=== PATIENT | male | born 1965 | race African-American/Black ===

== ENCOUNTER 2018-04-06 21:31 | Emergency (ER) | payer OTHER ==
[2018-04-06] MEDS ORDERED: predniSONE 10 MG TABLET (22:21)
[2018-04-06] MEDS: KETOROLAC 60 MG/2 ML INJ. IM (22:23)
[2018-04-06] MEDS: predniSONE 20 MG TABLET PO (22:26)
== END 2018-04-06 22:29 | disposition home or self-care (01) ==
LOC: ER 22:29
DX: M10.9 Gout, unspecified (principal); M25.531 Pain in right wrist; I10 Essential (primary) hypertension
CPT/HCPCS: 96372; 99283; J1885; J7512

== ENCOUNTER 2018-07-03 01:13 | Emergency (ER) | payer OTHER ==
[~2018-07-03] VITALS: Ht 170.2 cm; Wt 83.9 kg
[~2018-07-03 01:13] MED LIST: ALLO300T PO; AMLO10TA6 PO; CARV25TA2 PO; IBUP-1007 PO; PRED50TA PO
[2018-07-03 01:18] VITALS: BP 186/107
[2018-07-03] MEDS ORDERED: LIDOCAINE 1% PF 2 ML VIAL. ONE (01:23)
[2018-07-03] MEDS ORDERED: LIDOCAINE 1% PF 2 ML VIAL. INJ ONE ×2 (02:00→03:00)
[2018-07-03] MEDS ORDERED: HYDR-971 PO (03:02)
[2018-07-03] MEDS ORDERED: IBUP-1060 PO (03:02)
[2018-07-03] MEDS ORDERED: CEPH-264 PO (03:02)
--- NOTE | 2018-07-03 03:18 | PHYS DOC ---
Past Medical History Past Medical History: Hypertension Additional Past Medical Histor: GOUT Past Surgical History: No Surgical History Alcohol Use: Occasionally Drug Use: None Adult General Chief Complaint Chief Complaint: FINGER INJURY HPI HPI Patient is a 52 year old male who presents with right finger laceration. Patient states he was repairing some sort of old style fan at home. He states the fan had metal blades. It was running and he somehow got his finger caught in the fan. He sustained laceration to the right middle finger. He complains only of laceration. He does not complain of numbness or tingling or loss of ability to flex or extend the finger. No additional injuries. He is uncertain when his last tetanus shot was. Review of Systems Review of Systems Constitutional: Denies fever or chills Eyes: Denies HENT: Denies Respiratory: Denies Cardiovascular: No additional information not addressed in HPI GI: Denies : Denies Musculoskeletal: laceration as documented above Integument: Denies Neurologic: Denies All other systems were reviewed and found to be within normal limits, except as documented in this note. Current Medications Current Medications Current Medications Medications (Trade) Dose Ordered Sig/Annmarie Start Time Stop Time Status Last Admin Dose Admin Acetaminophen/ Hydrocodone Bitart (Lortab 5/325) 2 tab 1X ONCE 07/03/18 03:30 07/03/18 03:31 Cephalexin HCl (Keflex) 500 mg 1X ONCE 07/03/18 03:30 07/03/18 03:31 Diphtheria/ Tetanus/Acell Pertussis (Boostrix) 0.5 ml ONCE ONCE 07/03/18 03:30 07/03/18 03:31 Ibuprofen (Motrin) 800 mg 1X ONCE 07/03/18 03:30 07/03/18 03:31 Lidocaine HCl (Xylocaine-Mpf 1% 2ml Vial) 4 ml 1X ONCE 07/03/18 03:00 07/03/18 03:10 DC 07/03/18 02:58 4 ML Allergies Allergies Allergies Coded Allergies Type Severity Reaction Last Updated Verified No Known Drug Allergies 12/16/14 No Physical Exam Physical Exam Constitutional: Well developed, well nourished, no acute distress HENT: Normocephalic, atraumatic, bilateral external ears normal, oropharynx moist Eyes: PERRLA Neck: Normal range of motion Cardiovascular:Heart rate regular rhythm, no murmur Lungs & Thorax: Bilateral breath sounds clear to auscultation Skin: Warm, dry, no erythema, no rash Back: No tenderness Extremities: Degloving injury and laceration of the right middle finger. All flexor and extensor mechanisms remain intact. Sensation to light touch is intact distal to the wound. The laceration is nearly circumferential beginning over the PIP and extending past the DIP. Eppler refill is less than 2 seconds in the nailbed Neurologic: Alert and oriented X 3 Psychologic: Affect normal Current Patient Data Vital Signs Vital Signs Date Time Temp Pulse Resp B/P (MAP) Pulse Ox O2 Delivery O2 Flow Rate FiO2 07/03/18 01:18 99.2 102 20 186/107 (133) 98 Room Air 99.2 EKG EKG [] Radiology/Procedures Radiology/Procedures [] Course & Med Decision Making Course & Med Decision Making Pertinent Labs and Imaging studies reviewed. (See chart for details) Shunt was evaluated in the emergency department for an extensive laceration to the right middle finger. Plain film imaging was done. No acute fracture was seen on the x-ray. The laceration was repaired per the procedure note below. Patient was discharged to home with ibuprofen for mild pain, [place] for more severe pain. He was also placed on Keflex simply due to the depth and extent of the laceration and repair. The patient does work in a factory. He was explicitly advised not to drive or work while taking [place] for pain. Procedure note: Laceration repair right middle finger. The finger was anesthetized using a total of 60 L of 1% lidocaine without epinephrine. Digital block was performed in the usual fashion. The skin was cleansed with iodine prior to injection of the medication at the base of the ulnar and radial aspects of the middle finger. This anesthesia was adequate throughout the procedure. The wound was copiously irrigated. There was extensive amount of fat tissue protruding and extensive debridement required. A total of 22 simple interrupted sutures were placed. 3-0 nylon was used. The wound edges were difficult to approximate and at places were not possible to approximate. By the end of the procedure, the wound was hemostatic. The patient continued to have full range of motion and flexion and extension mechanisms remained intact. The wound was dressed and the patient was placed in a splint in flexion. Patient tolerated well. He was advised to return to the ER in 10-14 days to have the sutures removed. Sooner if there are any signs of infection. tetanus IMM was given. Dragon Disclaimer Dragon Disclaimer This electronic medical record was generated, in whole or in part, using a voice recognition dictation system. Departure Departure Impression: Primary Impression: Laceration of finger Disposition: HOME, SELF-CARE Condition: GOOD Patient Instructions: Sutured Wound Care, Laceration Care, Adult, [id number] , Pain Medicine Instructions, [id number] Scripts Cephalexin (KEFLEX) 500 Mg Capsule 500 MG PO QID for 10 Days, #40 CAP Prov: MARY LEAL DO 07/03/18 Hydrocodone/Apap 5-325 (NORCO 5-325 TABLET) 1 Each Tablet 1-2 EACH PO PRN Q6HRS PRN for severe pain, #15 as needed for pain Prov: MARY LEAL DO 07/03/18 Ibuprofen (IBUPROFEN) 800 Mg Tablet 800 MG PO PRN TID PRN for PAIN, #21 TAB take with food or milk to avoid upsetting stomach Prov: MARY LEAL DO 07/03/18 MARY LEAL DO Jul 03, 2018 03:18
[2018-07-03] MEDS ORDERED: DIPHTH,PERTUSS(ACELL),TET TOX 0.5 ML DISP.SYRIN. VAX IM ONE (03:30)
[2018-07-03] MEDS ORDERED: HYDROcodone/APAP 5/325MG 1 TAB TABLET PO ONE (03:30)
[2018-07-03] MEDS ORDERED: IBUPROFEN 400 MG TABLET. PO ONE (03:30)
[2018-07-03] MEDS ORDERED: CEPHALEXIN 250 MG CAPSULE. PO ONE (03:30)
--- NOTE | 2018-07-03 06:26 | RAD ---
EXAM: PA, oblique and lateral views of the right hand DATE: 07/03/2018 1:31 AM INDICATION: laceration to middle finger COMPARISON: No Prior FINDINGS/ IMPRESSION: No evidence of acute fracture or dislocation. Laceration is seen at the radial aspect of the middle phalanx of the middle finger without definite retained radiopaque foreign body or subjacent osseous abnormality. Scattered IP joint degenerative changes. Electronically signed by: Arnulfo Gautam MD (07/03/2018 6:22 AM) [id number]
== END 2018-07-03 03:17 | disposition home or self-care (01) ==
LOC: ER 01:13
DX: S61.212A Laceration without foreign body of right middle finger without damage to nail, initial encounter (principal); I10 Essential (primary) hypertension; M10.9 Gout, unspecified; W23.0XXA Caught, crushed, jammed, or pinched between moving objects, initial encounter; Y93.89 Activity, other specified; Y92.89 Other specified places as the place of occurrence of the external cause; Y99.8 Other external cause status
CPT/HCPCS: 12041; 12045; 73130; 90471; 90715; 99284-25

== ENCOUNTER → 2018-08-29 | Outpatient (CLI) | payer OTHER ==
[~2018-08-29] MED LIST changes: +CEPH-264 PO; +HYDR-3164 PO; +IBUP-1060 PO
--- NOTE | 2018-08-29 10:38 | RAD ---
MR of the right third finger HISTORY: Anterior laceration of the middle finger 2 months ago. Limited range of motion and swelling. TECHNIQUE: Routine multiplanar sequences are obtained through the third finger. FINDINGS: There is mild soft tissue edema and swelling of the third finger. There is no evidence of disruption of the flexor or extensor tendons of the third finger. No significant tendon sheath fluid. No evidence of acute collateral ligament disruption. There is a small focus of susceptibility type artifact at the level of the third PIP joint, anterior and laterally, suspicious for a tiny metallic foreign body, versus surgical intervention here. No significant joint effusion. No abnormal drainable soft tissue fluid collection or abscess. There is suboptimal fat suppression, limiting evaluation of bone marrow edema. However, no obvious bone destruction is seen on the T1-weighted images. Note that the distal phalanx is poorly evaluated due to artifact and signal degradation. IMPRESSION: Mild soft tissue edema of the third finger. No evidence of a drainable fluid collection or tendinous disruption. There is a tiny focus of susceptibility type artifact in the soft tissues at the level of the PIP joint of the third finger, at its anterolateral aspect, suspicious for a tiny metallic foreign body. Electronically signed by: Awais Encarnacion MD (08/29/2018 10:34 AM) [facility]
== END | disposition home or self-care (01) ==
LOC: MRI 09:41
PROVIDERS: ATTEND Family Medicine
DX: S61.212A Laceration without foreign body of right middle finger without damage to nail, initial encounter (principal); X58.XXXA Exposure to other specified factors, initial encounter; Y93.89 Activity, other specified; Y92.89 Other specified places as the place of occurrence of the external cause; Y99.8 Other external cause status
CPT/HCPCS: 73218

== ENCOUNTER 2019-01-17 14:16 | Emergency (ER) | payer OTHER ==
[~2019-01-17] VITALS: Ht 170.2 cm; Wt 83.9 kg
[~2019-01-17 14:16] MED LIST changes: -AMLO10TA6 PO; +AMLO10TA8 PO
[2019-01-17] MEDS ORDERED: IV NORMAL SALINE 1000ML BAG 1,000 ML IV SCH (14:42)
[2019-01-17] MEDS ORDERED: HYDROmorphone 2 MG/ML VIAL IV/SQ PRN (14:45)
[2019-01-17] MEDS ORDERED: ONDANSETRON PF 4 MG/2 ML VIAL. IV ONE (14:45)
[2019-01-17] MEDS ORDERED: KETOROLAC 30 MG/ML VIAL. IV ONE (14:45)
[2019-01-17 14:58] LABS: BASO % 0 % (0-3); EOS # 0.5 x10^3/uL (0.0-0.7); EOS % 6 % (0-3); HEMATOCRIT 40.8 % (39.0-53.0); HEMOGLOBIN 13.6 g/dL (13.0-17.5); LYMPH # 1.9 x10^3/uL (1.0-4.8); LYMPH % 26 % (24-48); MEAN CORPUSCULAR HEMOGLOBIN 29 pg (25-35); MEAN CORPUSCULAR HGB CONC 33 g/dL (31-37); MEAN CORPUSCULAR VOLUME 87 fL (79-100); MONO # 0.8 x10^3/uL (0.0-1.1); MONO % 11 % (0-9); NEUT # 4.1 x10^3uL (1.8-7.7); NEUT % 56 % (31-73); PLATELET COUNT 312 x10^3/uL (140-400); RED BLOOD COUNT 4.69 x10^6/uL (4.30-5.70); RED CELL DISTRIBUTION WIDTH 13.9 % (11.5-14.5); WHITE BLOOD COUNT 7.2 x10^3/uL (4.0-11.0)
[2019-01-17 15:10] LABS: CALCIUM 9.5 mg/dL (8.5-10.1); CREATININE 1.4 mg/dL (0.7-1.3); GFR 63.9; POTASSIUM 3.9 mmol/L (3.5-5.1)
[2019-01-17 15:16] LABS: ALBUMIN 3.9 g/dL (3.4-5.0); ALBUMIN/GLOBULIN RATIO 1.1 (1.0-1.7); TOTAL BILIRUBIN 0.6 mg/dL (0.2-1.0); TOTAL PROTEIN 7.6 g/dL (6.4-8.2)
--- NOTE | 2019-01-17 16:13 | RAD ---
CT of the abdomen and pelvis without contrast, 01/17/2019: HISTORY: Left flank pain Noncontrast scans were obtained with multiplanar reconstructions produced. No intrarenal calculi are identified. The right renal collecting system and right ureter are unremarkable. There is mild dilatation of the left renal collecting system with mild parapelvic edema. The proximal left ureter is dilated down to the point where a 3 mm ureteral calculus is visualized. This lies at the L3-4 level in the proximal ureter. The distal left ureter is unremarkable. The partially filled urinary bladder shows no abnormality. The unopacified liver is unremarkable. No gallbladder abnormality is seen. The pancreas is unremarkable. The spleen is of normal size. Mild aortoiliac calcific plaquing is present. No abdominal or pelvic adenopathy is seen. Prostatic calcifications are present. The bowel loops are not dilated. A few scattered colonic diverticula are noted. The appendix is visualized and shows no abnormality. No free fluid or free air is evident in the abdomen or pelvis. There is a tiny fat-containing umbilical hernia. IMPRESSION: 3 mm obstructing calculus in the proximal left ureter. PQRS Compliance Statement: One or more of the following individualized dose reduction techniques were utilized for this examination: 1. Automated exposure control 2. Adjustment of the mA and/or kV according to patient size 3. Use of iterative reconstruction technique Electronically signed by: Delvis Gresham MD (01/17/2019 4:10 PM) [facility]
--- NOTE | 2019-01-17 16:18 | PHYS DOC ---
Past Medical History Past Medical History: Hypertension, Other Additional Past Medical Histor: GOUT Past Surgical History: No Surgical History Alcohol Use: Occasionally Drug Use: None Adult General Chief Complaint Chief Complaint: FLANK PAIN HPI HPI Patient is a 53-year-old male who presents with complaint of left-sided flank pain that started approximately 1 hour prior to his arrival. Patient states that pain initially he had started in his mid to lower back and then over time radiated around to the front of the abdomen. He states that he has been nauseated but has not vomited. He also indicates that he broke out into a sweat. He rates pain at a 9 out of 10. He states that nothing seems to worsen or improve his symptoms. He describes the pain as a very deep colicky ache. Review of Systems Review of Systems Constitutional: Denies fever or chills [] Respiratory: Denies cough or shortness of breath [] Cardiovascular: No additional information not addressed in HPI [] GI: Denies abdominal pain. Positive nausea without vomiting or diarrhea [] : Denies dysuria or hematuria. Positive left flank pain. [] Musculoskeletal: Positive left-sided back pain [] All other systems were reviewed and found to be within normal limits, except as documented in this note. Current Medications Current Medications Current Medications Medications (Trade) Dose Ordered Sig/Annmarie Start Time Stop Time Status Last Admin Dose Admin Hydromorphone HCl (Dilaudid) 0.5 mg PRN Q15MIN PRN 01/17/19 14:45 01/18/19 14:44 01/17/19 15:01 0.5 MG Ketorolac Tromethamine (Toradol 30mg Vial) 30 mg 1X ONCE 01/17/19 14:45 01/17/19 14:46 DC 01/17/19 15:01 30 MG Ondansetron HCl (Zofran) 4 mg 1X ONCE 01/17/19 14:45 01/17/19 14:46 DC 01/17/19 15:00 4 MG Sodium Chloride 1,000 ml @ 1,000 mls/hr Q1H 01/17/19 14:42 01/17/19 15:41 DC 01/17/19 15:00 1,000 MLS/HR Tamsulosin HCl (Flomax) 0.4 mg 1X ONCE 01/17/19 16:45 01/17/19 16:46 DC 01/17/19 16:51 0.4 MG Allergies Allergies Allergies Coded Allergies Type Severity Reaction Last Updated Verified No Known Drug Allergies 12/16/14 No Physical Exam Physical Exam Constitutional: Well developed, well nourished, no acute distress, non-toxic appearance. [] HENT: Normocephalic, atraumatic, bilateral external ears normal, oropharynx moist, no oral exudates, nose normal. [] Eyes: PERRLA, EOMI, conjunctiva normal, no discharge. [] Neck: Normal range of motion, no tenderness, supple, no stridor. [] Cardiovascular: Regular rate and rhythm[] Lungs & Thorax: Bilateral breath sounds clear to auscultation [] Abdomen: Bowel sounds normal, soft, no tenderness. [] Skin: Warm, dry, no erythema, no rash. [] Extremities: No tenderness, no cyanosis, no clubbing, ROM intact, no edema. [] Neurologic: Alert and oriented X 3, no focal deficits noted. [] Current Patient Data Vital Signs Vital Signs Date Time Temp Pulse Resp B/P (MAP) Pulse Ox O2 Delivery O2 Flow Rate FiO2 01/17/19 15:31 20 95 Room Air 01/17/19 14:35 98.5 90 171/99 (123) 98.5 Lab Values Laboratory Tests Test 01/17/19 14:48 01/17/19 16:41 White Blood Count 7.2 x10^3/uL (4.0-11.0) Red Blood Count 4.69 x10^6/uL (4.30-5.70) Hemoglobin 13.6 g/dL (13.0-17.5) Hematocrit 40.8 % (39.0-53.0) Mean Corpuscular Volume 87 fL (79-100) Mean Corpuscular Hemoglobin 29 pg (25-35) Mean Corpuscular Hemoglobin Concent 33 g/dL (31-37) Red Cell Distribution Width 13.9 % (11.5-14.5) Platelet Count 312 x10^3/uL (140-400) Neutrophils (%) (Auto) 56 % (31-73) Lymphocytes (%) (Auto) 26 % (24-48) Monocytes (%) (Auto) 11 % (0-9) H Eosinophils (%) (Auto) 6 % (0-3) H Basophils (%) (Auto) 0 % (0-3) Neutrophils # (Auto) 4.1 x10^3uL (1.8-7.7) Lymphocytes # (Auto) 1.9 x10^3/uL (1.0-4.8) Monocytes # (Auto) 0.8 x10^3/uL (0.0-1.1) Eosinophils # (Auto) 0.5 x10^3/uL (0.0-0.7) Basophils # (Auto) 0.0 x10^3/uL (0.0-0.2) Sodium Level 137 mmol/L (136-145) Potassium Level 3.9 mmol/L (3.5-5.1) Chloride Level 102 mmol/L (98-107) Carbon Dioxide Level 24 mmol/L (21-32) Anion Gap 11 (6-14) Blood Urea Nitrogen 15 mg/dL (8-26) Creatinine 1.4 mg/dL (0.7-1.3) H Estimated GFR (Cockcroft-Gault) 63.9 BUN/Creatinine Ratio 11 (6-20) Glucose Level 163 mg/dL (70-99) H Calcium Level 9.5 mg/dL (8.5-10.1) Total Bilirubin 0.6 mg/dL (0.2-1.0) Aspartate Amino Transferase (AST) 19 U/L (15-37) Alanine Aminotransferase (ALT) 28 U/L (16-63) Alkaline Phosphatase 61 U/L (46-116) Total Protein 7.6 g/dL (6.4-8.2) Albumin 3.9 g/dL (3.4-5.0) Albumin/Globulin Ratio 1.1 (1.0-1.7) Urine Collection Type Unknown Urine Color Yellow Urine Clarity Clear Urine pH 5.5 Urine Specific [place] 1.015 Urine Protein Negative mg/dL (NEG-TRACE) Urine Glucose (UA) Negative mg/dL (NEG) Urine Ketones (Stick) Trace mg/dL (NEG) Urine Blood Large (NEG) Urine Nitrite Negative (NEG) Urine Bilirubin Negative (NEG) Urine Urobilinogen Dipstick 0.2 mg/dL (0.2 mg/dL) Urine Leukocyte Esterase Negative (NEG) Urine RBC 20-40 /HPF (0-2) Urine WBC Rare /HPF (0-4) Urine Squamous Epithelial Cells Occ /LPF Urine Bacteria 0 /HPF (0-FEW) Urine Mucus Marked /LPF Laboratory Tests 01/17/19 14:48 Laboratory Tests 01/17/19 14:48 EKG EKG [] Radiology/Procedures Radiology/Procedures [] Impressions: PROCEDURE: CT ABDOMEN PELVIS WO CONTRAST CT of the abdomen and pelvis without contrast, 01/17/2019: HISTORY: Left flank pain Noncontrast scans were obtained with multiplanar reconstructions produced. No intrarenal calculi are identified. The right renal collecting system and right ureter are unremarkable. There is mild dilatation of the left renal collecting system with mild parapelvic edema. The proximal left ureter is dilated down to the point where a 3 mm ureteral calculus is visualized. This lies at the L3-4 level in the proximal ureter. The distal left ureter is unremarkable. The partially filled urinary bladder shows no abnormality. The unopacified liver is unremarkable. No gallbladder abnormality is seen. The pancreas is unremarkable. The spleen is of normal size. Mild aortoiliac calcific plaquing is present. No abdominal or pelvic adenopathy is seen. Prostatic calcifications are present. The bowel loops are not dilated. A few scattered colonic diverticula are noted. The appendix is visualized and shows no abnormality. No free fluid or free air is evident in the abdomen or pelvis. There is a tiny fat-containing umbilical hernia. IMPRESSION: 3 mm obstructing calculus in the proximal left ureter. PQRS Compliance Statement: One or more of the following individualized dose reduction techniques were utilized for this examination: 1. Automated exposure control 2. Adjustment of the mA and/or kV according to patient size 3. Use of iterative reconstruction technique Electronically signed by: Delvis Gresham MD (01/17/2019 4:10 PM) [facility] Course & Med Decision Making Course & Med Decision Making Pertinent Labs and Imaging studies reviewed. (See chart for details) [] Dragon Disclaimer Dragon Disclaimer This electronic medical record was generated, in whole or in part, using a voice recognition dictation system. Departure Departure Impression: Primary Impression: Ureterolithiasis Disposition: 01 HOME, SELF-CARE Condition: STABLE Referrals: SKYLAR JUNG MD (PCP) Patient Instructions: Kidney Stones Scripts Ondansetron Hcl (ZOFRAN) 4 Mg Tablet 4 MG PO PRN TID PRN for NAUSEA, #15 nausea/vomiting Prov: CHINO KHAN Jr. DO 01/17/19 Tamsulosin Hcl (FLOMAX) 0.4 Mg Cap.er.24h 0.4 MG PO DAILY for 7 Days, #7 TAB Prov: CHINO KHAN Jr. DO 01/17/19 Oxycodone/Apap 10-325 (PERCOCET 10-325 MG TABLET ) 1 Each Tablet 1 TAB PO PRN Q6HRS PRN for PAIN, #15 TAB 0 Refills Prov: CHINO KHAN Jr. DO 01/17/19 CHINO KHAN Jr. DO January 17, 2019 16:18
[2019-01-17] MEDS ORDERED: TAMSULOSIN 0.4 MG CAP.ER.24H. PO ONE (16:45)
[2019-01-17 16:51] LABS: BILIRUBIN,URINE NEGATIVE (NEG); CLARITY,URINE CLEAR; COLOR,URINE YELLOW; NITRITE,URINE NEGATIVE (NEG); PH,URINE 5.5; PROTEIN,URINE NEGATIVE (NEG-TRACE); UROBILINOGEN,URINE 0.2 mg/dL (0.2 mg/dL)
[2019-01-17 16:59] LABS: BACTERIA,URINE 0 /HPF (0-FEW); RBC,URINE 20-40 /HPF (0-2); SQUAMOUS EPITHELIAL CELL,UR OCC /LPF; WBC,URINE RARE /HPF (0-4)
[2019-01-17] MEDS ORDERED: TAMS0.4C97 PO (17:10)
[2019-01-17] MEDS ORDERED: OXYC1TAB22 PO (17:10)
[2019-01-17] MEDS ORDERED: ONDA4TAB7 PO (17:10)
[2019-01-17 17:15] VITALS: BP 157/88
== END 2019-01-17 17:40 | disposition home or self-care (01) ==
LOC: ER 14:16
DX: N20.1 Calculus of ureter (principal); K42.9 Umbilical hernia without obstruction or gangrene; I10 Essential (primary) hypertension; M10.9 Gout, unspecified
CPT/HCPCS: 36415; 74176; 80053; 81001; 85025; 96374; 96375; 99285; J1170; J1885; J2405; J7030; 96361